=== PATIENT | male | born 1965 | race Caucasian/White ===

== ENCOUNTER 2017-07-18 11:27 | Outpatient (CLI) | payer OTHER ==
--- NOTE | 2017-07-18 14:07 | RAD ---
3 VIEWS RIGHT KNEE: Date: 07/18/17 INDICATION: Arthritis. COMPARISON: None. FINDINGS: There is postprocedural change of proximal tibial osteotomy. There is mild degenerative arthrosis inv olving the right knee. This is predominantly involving the patellofemoral and medial femorotibial harris nt compartment. No acute fracture or subluxation is evident. IMPRESSION: Postoperative right knee with mild osteoarthrosis. POS: [facility]
--- NOTE | 2017-07-18 14:08 | RAD ---
4 VIEWS LEFT KNEE: Date: 07/18/17 INDICATION: Arthritis. COMPARISON: None. FINDINGS: There is mild osteoarthrosis involving the left knee, predominantly in the medial femorotibial and pa tellofemoral compartments. Small bone island seen in posterolateral aspect of the tibial plateau. No joint capsular distention is evident. IMPRESSION: Mild osteoarthrosis of left knee. POS: [facility]
--- NOTE | 2017-07-18 14:16 | RAD ---
THREE VIEWS OF THE RIGHT SHOULDER INDICATION: Arthritis. COMPARISON: None. FINDINGS: No acute fracture or dislocation is evident. Visualized right lung is clear. IMPRESSION: No acute osseous abnormality. POS: [facility]
--- NOTE | 2017-07-18 14:20 | RAD ---
PA AND LATERAL OF THE CHEST: INDICATION: History of bronchitis. COMPARISON: Prior exam dated 08/22/2010. FINDINGS: The lungs are clear. Cardiomediastinal silhouette is within normal limits. No acute osseous abnorma lity is evident. IMPRESSION: No acute cardiopulmonary abnormality. POS: [facility]
== END 2017-07-18 11:28 | disposition home or self-care (01) ==
LOC: CP 11:27
PROVIDERS: ATTEND Orthopaedic Surgery
DX: J40 Bronchitis, not specified as acute or chronic (principal); M13.80 Other specified arthritis, unspecified site; B00.9 Herpesviral infection, unspecified; M17.0 Bilateral primary osteoarthritis of knee; Z96.651 Presence of right artificial knee joint
CPT/HCPCS: 36415; 71020; 86694; 86695; 86696

== ENCOUNTER 2017-10-10 11:28 | Outpatient (CLI) | payer OTHER ==
--- NOTE | 2017-10-10 13:08 | RAD ---
THREE VIEWS LUMBAR SPINE: Date: 10-10-17 Provided Clinical History: Low back pain. FINDINGS: Five non-rib bearing lumbar type vertebral bodies are present. Lumbar alignment appears normal. Verte bral body heights appear preserved. Pedicles appear intact. Sacroiliac joints appear symmetric. No ly tic or blastic lytic lesions are seen. Mild lower lumbar spine facet arthritis is suspected. IMPRESSION: Mild lower lumbar spine facet arthritis is suspected. POS: [facility]
== END 2017-10-10 11:29 | disposition home or self-care (01) ==
LOC: RAD 11:28
PROVIDERS: ATTEND Chiropractor
DX: M54.5 Low back pain (principal)
CPT/HCPCS: 72100

== ENCOUNTER 2019-06-30 06:29 | Outpatient (CLI) | payer OTHER ==
[2019-06-30 10:37] LABS: Hemoglobin 16.7 g/dL (14.0-18.0); Mean Corpuscular HGB CONC 34.7 g/dL (32.0-36.0); Mean Corpuscular Hemoglobin 32.6 pg (27.0-31.0); Mean Corpuscular Volume 94.1 fL (78.0-98.0); Mean Platelet Volume 7.4 fL (7.4-10.4); Platelet Count 264 thou/uL (130-400); RBC Distribution Width 11.1 % (11.5-14.5); Red Blood Cell (RBC) Count 5.11 mill/uL (4.70-6.10)
[2019-06-30 10:45] LABS: Bacteria/HPF None Seen HPF (None Seen); Bilirubin Negative (Negative); Blood, Urine Negative (Negative); Clarity Clear (Clear); Glucose, Urine (Dipstick) Normal (Negative); Leukocyte Negative Leu/uL (Negative); Nitrite Negative (Negative); Protein, Urine (Dipstick) Negative (Neg-Trace); RBC/HPF 0-3 HPF (0-3); Squamous Epithelial None Seen HPF (0-3); Urobilinogen Normal mg/dL (Less than 2); WBC/HPF 0-3 HPF (0-3)
[2019-06-30 11:00] LABS: Anion Gap 10 mmol/L (10-20); BUN (Urea Nitrogen) 19 mg/dL (8.4-25.7); Calc. Creatinine Clearance 0 mL/min (70-130); Calcium 9.4 mg/dL (7.8-10.44); Carbon Dioxide 28 mmol/L (22-29); Chloride 104 mmol/L (98-107); Estimated GFR-MDRD 75; Glucose 92 mg/dL (70-105); Potassium 4.7 mmol/L (3.5-5.1); Sodium 137 mmol/L (136-145)
== END 2019-06-30 06:30 | disposition home or self-care (01) ==
LOC: LABBT 06:29
PROVIDERS: ATTEND Urology
DX: Z01.818 Encounter for other preprocedural examination (principal); N40.1 Benign prostatic hyperplasia with lower urinary tract symptoms; E29.1 Testicular hypofunction
CPT/HCPCS: 80048; 81001; 85027; 87086; 93005; 93010

== ENCOUNTER 2019-07-05 10:02 | Emergency (ER) | payer OTHER ==
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
== END 2019-07-05 11:42 | disposition home or self-care (01) ==
LOC: ERS 10:02
DX: S60.221A Contusion of right hand, initial encounter (principal); F41.9 Anxiety disorder, unspecified; Z79.899 Other long term (current) drug therapy; W51.XXXA Accidental striking against or bumped into by another person, initial encounter

== ENCOUNTER 2019-07-07 06:23 | Day surgery (SDC) | payer OTHER ==
[2019-06-30 09:01] VITALS: BMI 27.1
[2019-07-07] MEDS ORDERED: Levofloxacin 500 mg/D5W 100 ml Premix Bag ONE (08:19)
[2019-07-07] MEDS ORDERED: Fentanyl 100 MCG/2 ML VIAL ONE (08:23)
[2019-07-07] MEDS ORDERED: Ketorolac Tromethamine 30 MG/ML VIAL ONE (09:34)
[2019-07-07] MEDS ORDERED: Phenazopyridine HCl 97.5 MG TABLET ONE (09:34)
[2019-07-07] MEDS ORDERED: Oxybutynin 5 MG TAB ONE (09:34)
[2019-07-07] MEDS ORDERED: PROPOFOL 200 MG/20 ML VIAL ONE (10:47)
--- NOTE | 2019-07-07 12:12 | OP ---
DATE OF PROCEDURE: 07/07/2019 PREOPERATIVE DIAGNOSIS: Enlarged prostate with lower urinary tract symptoms. POSTOPERATIVE DIAGNOSIS: Enlarged prostate with lower urinary tract symptoms. PROCEDURE PERFORMED: Transurethral implantation of prostatic urethral lift device. ANESTHESIA: TIVA. COMPLICATIONS: None. ESTIMATED BLOOD LOSS: 20 mL. DESCRIPTION OF PROCEDURE: After informed consent, the patient was taken to the operating room, transferred to the table under his own power. Anesthesia was established. A time-out was performed showing correct patient, site, and procedure. Preoperative antibiotics were administered. He was prepped and draped in the lithotomy position. A 20-Bengali cystoscope was inserted into the bladder noting coapting lateral lobes of the prostate with a high bladder neck. The bladder was systematically examined noting no mucosal abnormalities. I did note mild trabeculation. The cystoscopy bridge was replaced with the UroLift delivery device. The first treatment set was the patient's right side approximately 2 cm distal to the bladder neck. The distal tip of the delivery device was then angled laterally approximately 20 degrees of this position to compress the lateral lobe. The trigger was pulled thereby deploying a needle containing the implant through the prostate. The needle was then retracted, allowing one end of the implant to be delivered to the capsular surface of the prostate. The implant was then tensioned to assure capsular seating and removal of slack monofilament. The device was then angled back towards midline and slowly advanced approximately about 3 to 4 mm until cystoscopic verification of the monofilament being centered in the delivery bay. The urethral end piece was then affixed to the monofilament, thereby tailoring the size of the implant. Excess filament was then severed. The delivery device was then readvanced into the bladder. The delivery device was then replaced with cystoscope and bridge and the implant location and opening affect was confirmed cystoscopically. The same procedure was then repeated on the left side of the bladder neck to point the second implant. A third implant was delivered just proximal to the verumontanum on the patient's right side. Upon attempting to deploy the fourth implant on the left side proximal to the verumontanum, we failed to place the capsular end pieces entirely on the outside of the prostate. The clip was not seated well against the mucosa. I then switched to our regular cystoscope and used a grasper to remove the urethral end piece in the capsular seating device. I then returned to the previous cystoscope and implanted the 5th implant on the patient's left side just proximal to the verumontanum. Cystoscopy was then performed showing no persistent obstruction. He had an excellent anterior channel throughout the prostatic urethra with irrigation flow turned off. He was then brought down from the lithotomy position, awoken from anesthesia, and transferred back to his hospital bed and taken to PACU in stable condition. IMPLANT LOCATION SUMMARY: 1. Implant 1: Right proximal prostatic urethra. 2. Implant 2: Left proximal prostatic urethra. 3. Implant 3: Right distal prostatic urethra proximal to the verumontanum. 4. Implant 4: Failed to seat properly. 5. Implant 5: Left distal prostatic urethra proximal to the verumontanum. CRITERIA: No active UTI. Conservative management failed, and surgical intervention indicated. IPSS 31/10. Job ID: [id number]
== END 2019-07-07 10:55 | disposition home or self-care (01) ==
LOC: SDC 06:23
PROVIDERS: ATTEND Urology
PROC: 0T7D8DZ Dilation of Urethra with Intraluminal Device, Via Natural or Artificial Opening Endoscopic (ICD-10-PCS; principal; 2019-07-07)
DX: N40.1 Benign prostatic hyperplasia with lower urinary tract symptoms (principal); Z79.899 Other long term (current) drug therapy
CPT/HCPCS: C1889; J1885; J1956; J2704; J3010

== ENCOUNTER 2019-10-05 14:07 | Outpatient (CLI) | payer OTHER ==
--- NOTE | 2019-10-05 15:22 | RAD ---
PA AND LATERAL CHEST: Date: 10/05/2019 HISTORY: Cough. COMPARISON: 07/18/2017 study. FINDINGS: Heart size within normal limits. Mediastinal structures appear unremarkable. Lungs are clear of infil trates. There are arthritic changes of the spine. IMPRESSION: No active intrathoracic disease. POS: [facility]
== END 2019-10-05 14:08 | disposition home or self-care (01) ==
LOC: SCSRAD 14:07
PROVIDERS: ATTEND Family Medicine
DX: R05 Cough (principal)
CPT/HCPCS: 71046

== ENCOUNTER 2019-11-27 12:04 | Emergency (ER) | payer BC, OTHER ==
[2019-11-27] MEDS ORDERED: Fentanyl 100 MCG/2 ML VIAL ONE ×2 (12:29→14:13)
[2019-11-27] MEDS ORDERED: Ondansetron PF 4 MG/2 ML Vial ONE ×2 (12:40→14:14)
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
[2019-11-27] MEDS ORDERED: Ketorolac Tromethamine 30 MG/ML VIAL ONE (14:14)
== END 2019-11-27 14:29 | disposition home or self-care (01) ==
LOC: ERS 12:04
DX: M54.5 Low back pain (principal); N40.0 Benign prostatic hyperplasia without lower urinary tract symptoms; F41.9 Anxiety disorder, unspecified; Z79.899 Other long term (current) drug therapy; W19.XXXA Unspecified fall, initial encounter
CPT/HCPCS: 72131; 96374; 96375; 96376; J1885; J2405; J3010